=== PATIENT | male | born 1955 | race Caucasian/White ===

== ENCOUNTER → 2018-10-24 | Outpatient (CLI) | payer BC ==
[~2018-10-24] MED LIST: METHACHOLINE KIT (J7674) INH ONE
--- NOTE | 2018-10-24 10:18 | PFTRPT ---
Height: 70.00 Inches Weight: 280.00 Lbs BSA: 2.41 Diagnosis: R05 DATE OF PROCEDURE: 10/24/2018 ORDERED BY: Nahum Nolen INTERPRETATION: Methacholine challenge of excellent technical quality. Under protocol, methacholine was administered. Even after a maximal dose of 25 mg (188.875 CDUs), no provocation dose ever achieved. IMPRESSION: Negative methacholine challenge study. MTDD
== END ==
LOC: M CARPUL 09:08
PROVIDERS: ATTEND Allergy & Immunology
DX: R05 Cough (principal)
CPT/HCPCS: 94070; J7674

== ENCOUNTER → 2019-09-29 | Outpatient (REF) | payer BC ==
[2019-09-29 17:35] LABS: BASO # 0.1 10^3/uL (0.0-0.2); BASO % 0.6 % (0.0-1.0); EOS % 0.4 % (0.0-3.0); HEMATOCRIT 43.2 % (42.0-52.0); HEMOGLOBIN 14.1 g/dl (13.5-17.5); LYMPH # 0.4 10^3/uL (1.5-5.0); LYMPH % 4.8 % (24.0-44.0); MEAN CORPUSCULAR HEMOGLOBIN 30.2 pg (27.0-33.0); MEAN CORPUSCULAR HGB CONC 32.6 g/dl (32.0-36.5); MEAN CORPUSCULAR VOLUME 92.5 fl (80.0-96.0); MONO # 0.2 10^3/uL (0.0-0.8); MONO % 3.1 % (0.0-5.0); NEUTROPHILS # 7.1 10^3/uL (1.5-8.5); NEUTROPHILS % 90.7 % (36.0-66.0); PLATELET COUNT, AUTOMATED 156 10^3/uL (150-450); RED BLOOD COUNT 4.67 10^6/uL (4.30-6.10); WHITE BLOOD COUNT 7.9 10^3/uL (4.0-10.0)
[2019-09-29 17:36] LABS: BLOOD UREA NITROGEN 10 MG/DL (7-18); C REACTIVE PROTEIN QUANTITATIV 2.17 MG/DL (0.00-0.30); CALCIUM LEVEL 9.5 MG/DL (8.8-10.2); CARBON DIOXIDE LEVEL 29 MEQ/L (21-32); CHLORIDE LEVEL 98 MEQ/L (98-107); CREATININE FOR GFR 1.02 MG/DL (0.70-1.30); GLOMERULAR FILTRATION RATE > 60.0 (>49); GLUCOSE, FASTING 123 MG/DL (70-100); POTASSIUM SERUM 4.2 MEQ/L (3.5-5.1); SODIUM LEVEL 133 MEQ/L (136-145)
[2019-09-29 19:17] LABS: ERYTHROCYTE SEDIMENTATION RATE 43 mm/hr (0-20)
== END ==
LOC: M LABDRAW1 16:59
PROVIDERS: ATTEND Orthopaedic Surgery
DX: S82.54XA Nondisplaced fracture of medial malleolus of right tibia, initial encounter for closed fracture (principal); W18.30XA Fall on same level, unspecified, initial encounter; Y92.9 Unspecified place or not applicable

== ENCOUNTER 2019-10-06 09:46 | Inpatient (IN) | payer BC ==
--- NOTE | 2019-10-05 03:16 | HPE ---
DATE OF PLANNED ADMISSION: 10/06/2019 CHIEF COMPLAINT: Right ankle pain. HISTORY OF PRESENT ILLNESS: Chaim Metz is a 64-year-old male who is well known to me for severe right ankle arthritis. Unfortunately, over the past few weeks, he has had worsening pain. X-rays were performed, which have been found to show a worsening fracture through the distal tibia medially. He presents for open reduction, internal fixation of the tibia and ankle fusion. PAST MEDICAL HISTORY: 1. Hypertension. 2. Coronary artery disease. 3. Chronic obstructive pulmonary disease (COPD). 4. Gastroesophageal reflux disease (GERD) and history of Clostridium (C) difficile. 5. Multiple sclerosis (MS), on Aubagio. 6. Back problems. 7. History of a deep venous thrombosis (DVT) 2 years ago. ALLERGIES: SULFA, KEFLEX, PENICILLIN, AMOXICILLIN. PHYSICAL EXAMINATION: GENERAL: Well appearing, alert and oriented, in no acute distress. PULMONARY: Regular, nonlabored breathing. CARDIOVASCULAR (CV): Regular dorsalis pedis (DP) pulse. MUSCULOSKELETAL: There is significant pain along the tibiotalar joint and medial tibia. Mild swelling. Intact dorsiflexion, plantar flexion, inversion, eversion. Normal sensation to light touch in the superficial peroneal, deep peroneal, tibial distribution. Foot is normal perfused. IMAGING: [place]-[facility] [place] [facility] [place] [place] a displaced right tibial plafond fracture, which is vertical and severe, tibiotalar joint arthritis, which is in varus. IMPRESSION: Right ankle fracture in the setting of severe tibiotalar joint arthritis. PLAN: We will proceed with ankle fusion and open reduction, internal fixation (ORIF) of the right tibia. Risks and benefits of the surgery were discussed with the patient in detail and include, but are not limited to, infection, damage to nerves and blood vessels, continued pain and stiffness, need for additional procedures. We will also likely take some proximal tibial bone graft. Please refer to the patient's medical clearance report for any further information.
[~2019-10-06] VITALS: Ht 177.8 cm; Wt 117.5 kg
[~2019-10-06 09:46] MED LIST changes: +AMLO10TA5 PO; +AUBA14TA PO; +AVAP300T23 PO; +CITA20TA6 PO; +CRES20TA2 PO; +CVS1CAP2 PO; +DICY10CA13 PO; +FAMO40TA3 PO; +GABA-843 PO; +HM S0.65; +HYDR-3713 PO; +INDA25TAB PO; +LR 1,000 ML IV ONE; -METHACHOLINE KIT (J7674) INH ONE; +METO1TAB32 PO; +POTA10TA16 PO; +QC F0.52 PO; +SING10TA32 PO; +TERA1CAP3 PO; +VANCOMYCIN HCL 1,000 MG, VIAL MATE ADAPTER 1 EACH in D5W 250 ML IV ONE; +VENTAER INH; +VITA50005 PO; +ZYLO300T6 PO; +[UNRECOGNIZED DRUG - CODE] PO
[2019-10-06] MEDS ORDERED: VANCOMYCIN 1000MG/20ML VIAL As Ordered ONE (10:14)
[2019-10-06] MEDS ORDERED: FLON1SPR (10:51)
[2019-10-06] MEDS ORDERED: ASPI81TA85 PO (10:51)
[2019-10-06] MEDS ORDERED: ALBUTEROL SULFATE 2.5 MG/0.5 ML INH NEB SOLN INH ONE (11:45)
[2019-10-06] MEDS ORDERED: fentaNYL 100 MCG/2 ML INJECTION (J3010) As Ordered ONE ×2 (11:52→13:24)
[2019-10-06] MEDS ORDERED: MIDAZOLAM INJ 2MG/2ML VIAL (J2250 PER 1MG) As Ordered ONE ×2 (11:52→12:49)
[2019-10-06] MEDS: fentaNYL 100 MCG/2 ML INJECTION (J3010) IV PRN ×2 (12:10→12:25)
[2019-10-06] MEDS: MIDAZOLAM INJ 2MG/2ML VIAL (J2250 PER 1MG) IV PRN ×3 (12:10→12:52)
[2019-10-06] MEDS ORDERED: BUPIVACAINE HCL 0.5% 30 ML VIAL As Ordered ONE (13:14)
[2019-10-06] MEDS ORDERED: ROCURONIUM BROMIDE 50 MG/5 ML VIAL As Ordered ONE ×2 (13:24→15:09)
[2019-10-06] MEDS ORDERED: propofoL 200 MG/20 ML VIAL As Ordered ONE (13:24)
[2019-10-06] MEDS ORDERED: LIDOCAINE 2% 100MG/5ML SDV (FOR ANES.) As Ordered ONE (13:24)
[2019-10-06] MEDS ORDERED: PHENYLephrine HCL 500 MCG/5 ML (100MCG/ML) SYRINGE (J2370) As Ordered ONE (13:54)
[2019-10-06] MEDS ORDERED: METOCLOPRAMIDE INJ 10MG/2ML VIAL (J2765 PER 1) As Ordered ONE (13:55)
[2019-10-06] MEDS ORDERED: fentaNYL 250 MCG/5 ML INJECTION (J3010) As Ordered ONE ×2 (14:21→15:58)
[2019-10-06] MEDS ORDERED: EPINEPHrine INJ 1 MG/ML 1ML AMP ONE (14:55)
[2019-10-06] MEDS ORDERED: ROPIvacaine 0.5% 30ML INJECTION (J2795 PER 1MG) ONE (14:55)
[2019-10-06] MEDS ORDERED: LIDOCAINE 1% MDV 20ML VIAL ONE (14:55)
[2019-10-06] MEDS ORDERED: HYDROmorphone HCL 2 MG/ML 1ML VIAL (J1170) As Ordered ONE (15:10)
[2019-10-06] MEDS ORDERED: LABETALOL 100MG/20ML VIAL As Ordered ONE (16:00)
[2019-10-06] MEDS ORDERED: ACETAMINOPHEN 1000MG 100ML IV BTL (OFIRMEV) (J0131 PER 10MG) As Ordered ONE (16:21)
[2019-10-06] MEDS ORDERED: ONDANSETRON 4MG/2ML VIAL As Ordered ONE (17:13)
[2019-10-06] MEDS ORDERED: KETOROLAC 60 MG/2 ML VIAL As Ordered ONE (17:13)
[2019-10-06] MEDS ORDERED: dexameTHASONE 4 MG/ML 1ML VIAL (J1100 PER 1MG) As Ordered ONE (17:13)
[2019-10-06] MEDS ORDERED: ONDANSETRON 4MG/2ML VIAL IV PRN (18:30)
[2019-10-06] MEDS ORDERED: FLEET ENEMA PR PRN (18:30)
[2019-10-06] MEDS ORDERED: METOCLOPRAMIDE INJ 10MG/2ML VIAL (J2765 PER 1) IV PRN (18:30)
[2019-10-06] MEDS ORDERED: fentaNYL 100 MCG/2 ML INJECTION (J3010) IV PRN (18:30)
[2019-10-06] MEDS ORDERED: LR 1,000 ML IV SCH (18:30)
[2019-10-06] MEDS ORDERED: PERCOCET 5MG/325MG TAB PO PRN (18:30)
[2019-10-06] MEDS ORDERED: MORPHINE 2 MG/ML 1ML VIAL (J2270) IV PRN (18:45)
[2019-10-06] MEDS ORDERED: oxyCODONE 5MG TAB PO PRN (18:45)
[2019-10-06 20:00] VITALS: BP 138/89
[2019-10-06 20:15] LABS: HEMATOCRIT 39.6 % (42.0-52.0); HEMOGLOBIN 13.1 g/dl (13.5-17.5); MEAN CORPUSCULAR HEMOGLOBIN 30.2 pg (27.0-33.0); MEAN CORPUSCULAR HGB CONC 33.1 g/dl (32.0-36.5); MEAN CORPUSCULAR VOLUME 91.2 fl (80.0-96.0); PLATELET COUNT, AUTOMATED 152 10^3/uL (150-450); RED BLOOD COUNT 4.34 10^6/uL (4.30-6.10); WHITE BLOOD COUNT 8.4 10^3/uL (4.0-10.0)
[2019-10-06 20:25] LABS: INR 1.13; PROTHROMBIN TIME 14.2 SECONDS (11.8-14.0)
[2019-10-06] MEDS ORDERED: DICY20TA11 PO (20:31)
[2019-10-06 20:40] LABS: ALBUMIN 3.3 GM/DL (3.2-5.2); ALT/SGPT 22 U/L (12-78); BILIRUBIN,TOTAL 0.8 MG/DL (0.2-1.0); BLOOD UREA NITROGEN 17 MG/DL (7-18); CALCIUM LEVEL 8.4 MG/DL (8.8-10.2); CARBON DIOXIDE LEVEL 27 MEQ/L (21-32); CHLORIDE LEVEL 105 MEQ/L (98-107); CREATININE FOR GFR 0.99 MG/DL (0.70-1.30); GLOMERULAR FILTRATION RATE > 60.0 (>49); GLUCOSE, FASTING 131 MG/DL (70-100); POTASSIUM SERUM 4.2 MEQ/L (3.5-5.1); SODIUM LEVEL 137 MEQ/L (136-145); TOTAL PROTEIN 6.3 GM/DL (6.4-8.2)
[2019-10-06 20:42] LABS: CK-MB VALUE MASS 2.5 NG/ML (<3.6); CPK CREATINE PHOSPHOKINASE 209 U/L (39-308); TROPONIN I < 0.02 NG/ML (< 0.10)
[2019-10-06] MEDS: LR 1,000 ML IV SCH (20:44)
[2019-10-06] MEDS: VANCOMYCIN HCL 1,000 MG, VIAL MATE ADAPTER 1 EACH in D5W 250 ML IV SCH (20:44)
[2019-10-06] MEDS: ACETAMINOPHEN 500 MG TAB PO SCH (20:45)
[2019-10-06] MEDS: oxyCODONE 5MG TAB PO PRN (23:01)
[2019-10-07] VITALS: BP 158/92
[2019-10-07 01:18] LABS: CK-MB VALUE MASS 2.8 NG/ML (<3.6); CPK CREATINE PHOSPHOKINASE 270 U/L (39-308); MB/CK RELATIVE INDEX 1.04 (< OR =4); TROPONIN I < 0.02 NG/ML (< 0.10)
--- NOTE | 2019-10-07 01:45 | HPEPDOC ---
[facility] Medical History & Physical Date of Admission Oct 06, 2019 Date of Service: Oct 06, 2019 History and Physical CHIEF COMPLAINT: AV block during surgery HISTORY OF PRESENT ILLNESS: This is a 64-year-old male with a pertinent past medical history of ischemic heart disease, hypertension and MS who presented to [facility] for ORIF and proximal tibia bone graft with Dr. Cabrera today. During this procedure it was reported that Ms. Metz experienced 15 minutes of second-degree AV block type I. Telemetry strip were reviewed, which showed this episode lasting relatively 10 seconds. The meaning of the procedure was uneventful. He tolerated it relatively well with no hypotensive episodes. Hospitalist team was called for admission for evaluation. He endorses a history of hypertension and ischemic heart disease is on losartan and metoprolol succinate daily. Endorses to see a proof passer at [facility] cardiology his last visit was a few months ago and states he [place] [facility] [place] for a stress test and EKG. He notes that having a left catheterization in 2017 which showed minimal disease and did not have any stents placed. He denies any history of abnormal rhythms, congestive heart failure or any other known cardiac disease. He does endorse a history of DVTs in the past currently not on anticoagulation. He is on aspirin 81 mg for primary prevention. His last appointment with his PCP was on 10/03/2019 and documented EKG there states sinus rhythm with nonspecific intraventricular conduction delay with no acute ST-T wave changes unchanged from 2016. He has no complaints today and states hes feeling relatively well despite having surgery on his right leg. PAST MEDICAL HISTORY: 1. Hyperlipidemia 2. Ischemic heart disease ([facility] in 2017 negative no stents placed) 3. Multiple sclerosis 4. Asthma controlled 5. History of C. difficile S/D fecal transplant 6. Gout 7. Hypertension 8. Seasonal allergies on allergy shots 9. History of DVT on the Right 10. History of nephrolithiasis requiring lithotripsy HOME MEDICATIONS: Please see below. ALLERGIES: Please see below PAST SURGICAL HISTORY: 1. ORIF of the right ankle 2. Nephrolithiasis requiring lithotripsy 3. Cubital tunnel syndrome with decompression on the left 4. Insertion of the tendon sheath of the left ring and index finger 5. Tonsillectomy 6. Cholecystectomy 7. Decompression of the median nerve at the carpal tunnel bilaterally SOCIAL HISTORY: Lives with: ,Employment: Retired, [employer], Tobacco use: Former smoker quit in had a 30 pack history. ETOH: Former heavy drinker, Illicit drug use: Denies, CODE STATUS: Focal FAMILY HISTORY: Reviewed. Father [place], hypertension, CAD, obesity: Mother , COPD: Brother , stroke, hypertension: Second brother, hypertension, obesity, COPD, OA: Sister -hypertension REVIEW OF SYSTEMS: 10 systems reviewed and negative other than HPI PHYSICAL EXAMINATION: VITAL SIGNS: See Below GENERAL: Pleasant 64-year-old male laying in awake alert oriented speaking in complete sentences no acute distress HEENT: Atraumatic, normocephalic, it was equal round reactive, moist mucous membranes with a facemask over, large neck girth, no JVD noted trachea is midline CARDIOVASCULAR: Heart sounds faint S1-S2 sounds present no audible murmurs rubs or gallops appreciated RESPIRATORY: Lateral lung sounds clear to auscultate bilaterally posterior legs and cannot be documented for the patient could not sit up during exam ABDOMINAL: Bowel sounds in all 4 quadrants soft obese abdomen benign exam EXTREMITIES: Left lower extremity no pitting edema no calf tenderness. Right lower extremity wrapped in Delvin bandage with DONTA drain in place with bloody serosanguineous drainage no clotting noted. NEUROLOGICAL: intact no gross focal deficits appreciated. Appropriately answering questions alert and oriented 3 PSYCHOLOGICAL: Appropriate LABORATORY DATA: See below. MICROBIOLOGY: Please see below. IMAGING: None ASSESSMENT & PLAN: This is a 64-year-old male with a pertinent past medical history of ischemic heart disease, hypertension and MS who presented to [facility] for ORIF and proximal tibia bone graft with Dr. Cabrera today being admitted for second heart block type I determined on EKG during surgery. PROBLEMS: 1. Second heart block type I determined on EKG during surgery -possible secondary to metoprolol succinate (AV blockade) which he took this morning on the surgery -Currently on telemetry sinus rhythm with slightly prolonged PA interval the AV block blood pressure appears normotensive. Patient is asymptomatic - admit to PCU observation 24 hours with telemetry monitoring. -obtain EKG, cardiac marker trends q6h, monitor electrolytes and obtain echocardiogram. -If asymptomatic while admitted can consider discharge to follow-up with his proof passer earlier than scheduled for further workup (as an upcoming stress test and EKG scheduled in November 2019) 2. Hyperlipidemia -c/w Crestor 3. Hypertension -c/w amlodipine, Lozol, irbesartan and metoprolol succinate with hold parameters 4. Gout -c/w allopurinol 5. Acid reflux -c/w famotidine 6. Aasthma -Compensated. Monitor 7. Seasonal allergies -c/w Singulair 8. Depression -c/w citalopram 9. BPH -c/w Terazosin 10. History of DVTs -DVT prophylaxis per ortho due to recent surgery. -Start Xarelto tomorrow at 1800 DVT PROPHYLAXIS: Start Xarelto tomorrow at 1800 DISPOSITION: Admit Obs to PCU with telemetry monitoring Vital Signs Vital Signs Date Time Temp Pulse Resp B/P (MAP) Pulse Ox O2 Delivery O2 Flow Rate FiO2 10/07/19 00:00 97.1 74 20 158/92 (114) 96 Room Air 10/06/19 20:00 2 Laboratory Data Labs 24H Laboratory Tests 2 10/06/19 19:57: Nucleated Red Blood Cells % (auto) 0.0, Prothrombin Time 14.2H, Prothromb Time International Ratio 1.13, Anion Gap 5L, Glomerular Filtration Rate > 60.0, Calcium Level 8.4L, Total Bilirubin 0.8, Aspartate Amino Transf (AST/SGOT) 29, Alanine Aminotransferase (ALT/SGPT) 22, Alkaline Phosphatase 90, Total Creatine Kinase 209, Creatine Kinase MB 2.5, Creatine Kinase MB Relative Index 1.20, Troponin I < 0.02, Total Protein 6.3L, Albumin 3.3, Albumin/Globulin Ratio 1.10 10/06/19 20:34: Bedside Glucose (Misc Panel) 128H 10/07/19 00:51: Total Creatine Kinase 270, Creatine Kinase MB 2.8, Creatine Kinase MB Relative Index 1.04, Troponin I < 0.02 CBC/BMP Laboratory Tests 10/06/19 19:57 Microbiology Microbiology 10/06/19 Gram Stain, Received Pending 10/06/19 Wound Culture, Received Pending 10/06/19 Anaerobic Culture, Received Pending Home Medications Scheduled Allopurinol (Zyloprim) 300 Mg Tablet, 300 MG PO DAILY Amlodipine Besylate (Amlodipine Besylate) 10 Mg Tablet, 10 MG PO DAILY Aspirin (Aspir 81) 81 Mg Tablet.dr, 81 MG PO DAILY Citalopram Hydrobromide (Citalopram HBr) 20 Mg Tablet, 20 MG PO DAILY Ergocalciferol (Vitamin D2) (Vitamin D2) 50,000 Units Cap, 1 CAP PO QWEEK wednesday Famotidine (Famotidine) 40 Mg Tablet, 40 MG PO BID Gabapentin (Gabapentin) 300 Mg Capsule, 300 MG PO BID Indapamide (Indapamide) 2.5 Mg Tablet, 2.5 MG PO BID Irbesartan (Avapro) 300 Mg Tablet, 300 MG PO DAILY Lactobacillus Combo No.10 (Probiotic) 1 Each Capsule, 1 CAP PO BID Metoprolol Succinate (Metoprolol Succinate) 25 Mg Tab.er.24h, 25 MG PO DAILY Montelukast Sodium (Singulair) 10 Mg Tablet, 10 MG PO DAILY Potassium Chloride (Potassium Chloride) 10 Meq Tab.er.prt, 10 MEQ PO BID Psyllium Husk (Fiber) 0.52 Gm Capsule, 1 CAP PO BID Rosuvastatin Calcium (Crestor) 20 Mg Tablet, 20 MG PO DAILY Sodium Chloride (Saline Nasal [place]) 44 Ml [place], 1 SPRAY NA PRN Terazosin HCl (Terazosin HCl) 1 Mg Capsule, 1 MG PO QHS Teriflunomide (Aubagio) 14 Mg Tablet, 14 MG PO DAILY Yeast,Dried (S. Cerevisiae) (Fung's Yeast) 680 Mg Tablet, 680 MG PO BID Scheduled PRN Albuterol Sulfate (Ventolin Hfa) 18 Gm Hfa.aer.ad, 2 PUFFS INH QID PRN for DYSPNEA Dicyclomine HCl (Dicyclomine HCl) 20 Mg Tablet, 20 MG PO TID PRN for ABDOMINAL PAIN Fluticasone Propionate (Flonase Allergy Relief) 9.9 Ml [place].susp, 50 MCG NA DAILYPRN PRN for NASAL CONGESTION Hydrocodone/Acetaminophen (Hydrocodone-Acetamin 5-325 mg) 1 Each Tablet, 1 TAB PO TID PRN for PAIN Allergies Coded Allergies: Penicillins (Verified Allergy, Severe, resp issues, rashes, 10/04/19) all cillins Sulfa (Sulfonamide Antibiotics) (Verified Allergy, Severe, resp issues, rash, 10/04/19) cefaclor (Verified Allergy, Severe, resp issues, rash, 10/04/19) GME ATTESTATION GME ATTESTATION My faculty preceptor for this patient encounter was physically present during the encounter and was fully available. All aspects of the patient interview, examination, medical decision making process, and medical care plan development were reviewed and approved by the faculty preceptor. The faculty preceptor is aware and concurs with the plan as stated in the body of this note and will attest to such by his/her cosignature. ATTENDING NOTE I, Louise Whitlock, have independently examined this patient and performed my own physical exam, as well as reviewed the documentation and edited where necessary. I have discussed in detail with the resident / student the findings and plan of treatment as documented by the resident / student and edited their note. I agree with their findings and treatment plan and have edited their documentation. I will continue to follow the patient during this hospital stay. DULCE DOSS DO Oct 07, 2019 01:45 LOUISE WHITLOCK MD Oct 07, 2019 02:28
[2019-10-07] MEDS: TERAZOSIN 1 MG CAP PO SCH ×2 (02:39→20:29)
[2019-10-07] MEDS: FAMOTIDINE 20 MG TAB PO SCH ×3 (02:39→20:29)
[2019-10-07] MEDS: INDAPAMIDE 1.25MG TABLET PO SCH ×3 (02:44→21:00)
[2019-10-07] MEDS: NORCO, ANEXSIA 5/325MG TABLET (HYDROcodone/ACETAMINOPHEN) PO PRN ×2 (03:26→12:40)
[2019-10-07 04:00] VITALS: BP 146/82
[2019-10-07] MEDS: ACETAMINOPHEN 500 MG TAB PO SCH ×3 (06:00→22:00)
[2019-10-07 06:40] LABS: BASO % 0.2 % (0.0-1.0); HEMATOCRIT 37.7 % (42.0-52.0); HEMOGLOBIN 12.6 g/dl (13.5-17.5); LYMPH # 0.5 10^3/uL (1.5-5.0); LYMPH % 5.8 % (24.0-44.0); MEAN CORPUSCULAR HEMOGLOBIN 29.9 pg (27.0-33.0); MEAN CORPUSCULAR HGB CONC 33.4 g/dl (32.0-36.5); MEAN CORPUSCULAR VOLUME 89.5 fl (80.0-96.0); MONO # 0.5 10^3/uL (0.0-0.8); NEUTROPHILS # 7.1 10^3/uL (1.5-8.5); NEUTROPHILS % 87.6 % (36.0-66.0); PLATELET COUNT, AUTOMATED 162 10^3/uL (150-450); RED BLOOD COUNT 4.21 10^6/uL (4.30-6.10); WHITE BLOOD COUNT 8.1 10^3/uL (4.0-10.0)
[2019-10-07] MEDS: LR 1,000 ML IV SCH (06:41)
[2019-10-07 07:01] LABS: BLOOD UREA NITROGEN 14 MG/DL (7-18); CALCIUM LEVEL 8.6 MG/DL (8.8-10.2); CARBON DIOXIDE LEVEL 25 MEQ/L (21-32); CHLORIDE LEVEL 103 MEQ/L (98-107); CREATININE FOR GFR 0.89 MG/DL (0.70-1.30); GLOMERULAR FILTRATION RATE > 60.0 (>49); GLUCOSE, FASTING 121 MG/DL (70-100); MAGNESIUM LEVEL 2.1 MG/DL (1.8-2.4); POTASSIUM SERUM 4.2 MEQ/L (3.5-5.1); SODIUM LEVEL 136 MEQ/L (136-145)
[2019-10-07 07:03] LABS: CK-MB VALUE MASS 2.4 NG/ML (<3.6); CPK CREATINE PHOSPHOKINASE 302 U/L (39-308); MB/CK RELATIVE INDEX 0.79 (< OR =4); TROPONIN I < 0.02 NG/ML (< 0.10)
[2019-10-07 08:00] VITALS: BP 182/92
[2019-10-07] MEDS: VITAMIN D 1,000 INTERNATIONAL UNITS TABLET PO SCH (08:45)
[2019-10-07] MEDS: amLODIPine 10 MG TAB PO SCH (08:45)
[2019-10-07] MEDS: CitaloPRAM (CeleXA) 20 MG TAB PO SCH (08:45)
[2019-10-07] MEDS: MONTELUKAST 10 MG TAB PO SCH (08:45)
[2019-10-07] MEDS: METOPROLOL SUCC *XL* 25MG TAB (TopROL *XL*) PO SCH (08:45)
[2019-10-07] MEDS: IRBESARTAN 150 MG TAB PO SCH (08:46)
[2019-10-07] MEDS: allopurinoL 300 MG TAB PO SCH (08:46)
[2019-10-07] MEDS: ROSUVASTATIN 10 MG TAB (CRESTOR) PO SCH (08:47)
[2019-10-07] MEDS: VANCOMYCIN HCL 1,000 MG, VIAL MATE ADAPTER 1 EACH in D5W 250 ML IV SCH (08:47)
--- NOTE | 2019-10-07 09:14 | IPN ---
DATE: 10/07/2019 CHIEF COMPLAINT: Postop day #1 right ankle open reduction internal fixation (ORIF) with bone grafting. HISTORY OF PRESENT ILLNESS: This 64-year-old man is in the progressive care unit (PCU) for a second degree AV block. He is on telemetry. He is doing well otherwise. Minor amount of pain in the ankle. He is wondering if he can mobilize with a commode or to the washroom as long as he stays non weight bearing. PHYSICAL EXAMINATION: Well-appearing man in no acute distress. He is alert and oriented x3. Mood and affect pleasant and positive. He is lying supine in bed. His leg is elevated. He has spontaneous lower extremity. He can wiggle his toes. His toes are warm and well perfused. Capillary refill under 3 seconds. Josue-Griffin (DONTA) drainage in situ, 10 mL of red fluid. ASSESSMENT/PLAN: This man can mobilize up to the washroom as long as he stays non weightbearing. I will let the nurses know. We will likely wait until tomorrow until the DONTA drain decreases to remove the drain. He will be on telemetry for 24 hours postop. I appreciate their expert advice and managemnet. I will communicate the results to Dr. Cabrera as well.
[2019-10-07] MEDS ORDERED: DICYCLOMINE 10 MG CAP PO PRN (09:45)
[2019-10-07] MEDS ORDERED: ALBUTEROL 90 MCG/ACT 8GM HFA INHALER INH PRN (09:45)
[2019-10-07] MEDS ORDERED: FLUTICASONE PROP 0.05% NASAL SPRAY 16 GM (FLONASE) PRN (09:45)
[2019-10-07] MEDS ORDERED: SODIUM CHLORIDE NASAL 0.65% SPRAY BTL (OCEAN) PRN (09:45)
--- NOTE | 2019-10-07 09:51 | REP ---
MULTIPLE C-ARM VIEWS RIGHT ANKLE: Multiple C-arm views right ankle performed intraoperatively during placement of metallic plate and multiple metallic screws in the distal tibia and in the talus. 193 seconds of fluoroscopy time is utilized. Electronically Signed by Marcelo Mcgill MD 10/07/2019 10:01 A
--- NOTE | 2019-10-07 11:34 | IPNPDOC ---
Text Note Date of Service The patient was seen on 10/07/19. NOTE Subjective: -No complaints this morning, pain well controlled, asking about home meds being restarted PHYSICAL EXAMINATION: VITAL SIGNS: See Below, HDS, afebrile General: NAD, pleasant, obese HEENT: NCAT, EOMI, PERRLA, no injection, anicteric, MMM CARDIOVASCULAR: NSR without mrg noted RESPIRATORY: anterior exam with good air movement and clear to auscultation, no wheezing or rales, breathing comfortably on room air ABDOMINAL: Normoactive bowel, obese, soft, NTND EXTREMITIES: Right lower extremity wrapped in bandage with DONTA drain in place with bloody serosanguineous fluid in bag, LLE wnl with no edema, WWP NEUROLOGICAL: CN 2-12 appear grossly intact, moving all extremities with RLE limited by pain PSYCHOLOGICAL: Appropriate, AOx3 LABORATORY DATA: See below. WBC 8.1 hgb 12.6 platelets 162 na 136 K 4.2 Cr 0.89 mag 2.1 wound culture - no organisms on gram stain, pending culture IMAGING: None ASSESSMENT & PLAN: 64-year-old M with a pertinent past medical history of ischemic heart disease, hypertension and MS who presented to [facility] for ORIF and proximal tibia bone graft with Dr. Cabrera today and was admitted post op after noted brief second heart block type I determined on EKG during surgery, who is currently doing well post op under telemetry observation without further AV block. PROBLEMS: 1. 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 Hyperlipidemia -c/w Crestor 3. Hypertension -c/w amlodipine, Lozol, irbesartan and metoprolol succinate with hold parameters 4. Gout -c/w allopurinol 5. Acid reflux -c/w famotidine 6. Asthma -Compensated. Monitor, continue home mdi 7. Seasonal allergies -c/w Singulair 8. Depression -c/w citalopram 9. BPH -c/w Terazosin 10. MS -continue home teriflunomide 11. History of DVTs -DVT prophylaxis per ortho due to recent surgery. -Start Xarelto tomorrow at 1800 DVT PROPHYLAXIS: Start Xarelto today per surgical team DISPOSITION: Obs to PCU with telemetry monitoring VS,Fishbone, I+O VS, Fishbone, I+O Laboratory Tests 10/06/19 19:57 10/07/19 06:27 Vital Signs Date Time Temp Pulse Resp B/P (MAP) Pulse Ox O2 Delivery O2 Flow Rate FiO2 10/07/19 08:45 75 182/92 10/07/19 08:00 98.2 18 93 Room Air 10/06/19 20:00 2 I&O- Last 24 Hours up to 6 AM 10/07/19 06:00 Intake Total 3735 ml Output Total 1320 ml Balance 2415 ml BERTA SMALLS MD Oct 07, 2019 09:57
[2019-10-07 12:05] VITALS: BP 146/78
[2019-10-07] MEDS: TERIFLUNOMIDE 14 MG PO SCH (12:40)
--- NOTE | 2019-10-07 13:12 | ECGEPIP ---
[facility] Test Date: 2019-10-06 Pat Name: MEKA GORDON Department: Room: [place] [address] Gender: Male Claims Vice President: : 1955 Requested By: GENA Guidry Order Number: [id number] Reading MD: Tim Vila Measurements Intervals [place] Rate: 89 P: ND: 0 QRS: -55 QRSD: 137 T: 68 QT: 389 QTc: 474 Interpretive Statements Normal sinus rhythm MARKED LEFT AXIS DEVIATION INTRAVENTRICULAR CONDUCTION DELAY Comparison tracing not on file Electronically Signed on 10-07-2019 13:12:08 EDT by Tim Vila
--- NOTE | 2019-10-07 13:24 | ECGEPIP ---
[facility] Test Date: 2019-10-07 Pat Name: MEKA GORDON Department: Room: [place] [address] Gender: Male Guideman: ROSALIE : 1955 Requested By: VIANEY BABIN Order Number: [id number] Reading MD: Tim Vila Measurements Intervals [place] Rate: 71 P: 30 NM: 215 QRS: -39 QRSD: 105 T: -34 QT: 397 QTc: 432 Interpretive Statements SINUS RHYTHM WITH FIRST DEGREE AV BLOCK WITH OCCASIONAL VENTRICULAR PREMATURE COMPLEXES MARKED LEFT AXIS DEVIATION NONSPECIFIC T-WAVE ABNORMALITY new from tracing done 10-06-19 Electronically Signed on 10-07-2019 13:23:52 EDT by Tim Vila
[2019-10-07 16:00] VITALS: BP 144/77
[2019-10-07] MEDS: LACTOBACILLUS ACIDOPHILUS CAP (BACID) PO SCH (17:03)
[2019-10-07] MEDS ORDERED: RIVAROXABAN 10 MG TAB (XARELTO) PO SCH (18:00)
[2019-10-07 20:00] VITALS: BP 169/96
[2019-10-07] MEDS: METAMUCIL (PSYLLIUM) PACKET PO SCH (20:29)
[2019-10-07] MEDS: GABAPENTIN 300 MG CAP PO SCH (20:29)
[2019-10-07] MEDS: POTASSIUM CHLORIDE 10 MEQ SR TABLET PO SCH (20:29)
[2019-10-07] MEDS: oxyCODONE 5MG TAB PO PRN (20:29)
[2019-10-08] VITALS: BP 132/88
[2019-10-08] MEDS ORDERED: PROMETHAZINE INJ 25 MG/ML VIAL (J2550) IV PRN (02:45)
[2019-10-08] MEDS: NORCO, ANEXSIA 5/325MG TABLET (HYDROcodone/ACETAMINOPHEN) PO PRN (03:19)
[2019-10-08 04:00] VITALS: BP 147/92
[2019-10-08 05:48] LABS: BASO # 0.1 10^3/uL (0.0-0.2); BASO % 0.6 % (0.0-1.0); EOS # 0.1 10^3/uL (0.0-0.5); EOS % 0.6 % (0.0-3.0); HEMATOCRIT 38.9 % (42.0-52.0); HEMOGLOBIN 12.8 g/dl (13.5-17.5); LYMPH # 0.9 10^3/uL (1.5-5.0); MEAN CORPUSCULAR HEMOGLOBIN 29.9 pg (27.0-33.0); MEAN CORPUSCULAR HGB CONC 32.9 g/dl (32.0-36.5); MEAN CORPUSCULAR VOLUME 90.9 fl (80.0-96.0); MONO % 12.8 % (0.0-5.0); NEUTROPHILS # 5.9 10^3/uL (1.5-8.5); NEUTROPHILS % 74.6 % (36.0-66.0); PLATELET COUNT, AUTOMATED 163 10^3/uL (150-450); RED BLOOD COUNT 4.28 10^6/uL (4.30-6.10); WHITE BLOOD COUNT 7.9 10^3/uL (4.0-10.0)
[2019-10-08 06:00] LABS: BLOOD UREA NITROGEN 12 MG/DL (7-18); CALCIUM LEVEL 9.2 MG/DL (8.8-10.2); CARBON DIOXIDE LEVEL 29 MEQ/L (21-32); CHLORIDE LEVEL 101 MEQ/L (98-107); CREATININE FOR GFR 0.85 MG/DL (0.70-1.30); GLOMERULAR FILTRATION RATE > 60.0 (>49); GLUCOSE, FASTING 110 MG/DL (70-100); MAGNESIUM LEVEL 1.9 MG/DL (1.8-2.4); POTASSIUM SERUM 3.5 MEQ/L (3.5-5.1); SODIUM LEVEL 135 MEQ/L (136-145)
[2019-10-08] MEDS: ACETAMINOPHEN 500 MG TAB PO SCH (06:47)
--- NOTE | 2019-10-08 07:30 | ECHO ---
DATE OF STUDY: 10/07/2019 DATE OF : 1955 AGE: 64 REFERRING PROVIDER: Dr. Sonia Whitlock PATIENT LOCATION: Room 3230 REASON FOR THE STUDY: Abnormal EKG. 2-D MEASUREMENTS: IVS: 1.1 cm LV: 3.9 cm LVPW: 1.1 cm LA: 3.5 cm Aorta: 3.6 cm DOPPLER MEASUREMENTS: Peak velocity across the aortic valve: 1.2 m/s Peak velocity across the LVOT: 0.74 m/s Mitral E: 0.63 Mitral A: 0.85 Ratio: 0.7 2-D COMMENTS: 1. Technically limited study due to poor acoustic window. 2. Normal left ventricular size and wall thickness. Low normal global left ventricular systolic function with an estimated LVEF of 50-55% noted in limited views. 3. Normal left atrium. The right atrium and the right ventricle appeared to be normal in limited views. 4. The atrial septum appeared to be normal without evidence of defect or shunt. 5. Normal aortic root. 6. A small pericardial effusion was noted, no evidence of cardiac tamponade. 7. Mildly calcified aortic valve with normal leaflet excursion. The mitral valve and the tricuspid valve appeared to be normal in limited views. The pulmonic valve was not visualized. The proximal pulmonary artery branches also were not visualized. 8. The inferior vena cava was not visualized. DOPPLER: No significant valvular abnormalities detected. Abnormal relaxation pattern was noted across the mitral valve leaflets as well as the mitral valve annulus consistent with features of grade 1 left ventricular diastolic dysfunction. IMPRESSION: 1. Technically limited study due to poor acoustic window. 2. Normal global left ventricular systolic function. There are some features of left ventricular diastolic dysfunction, grade 1. 3. Aortic valve sclerosis without stenosis or aortic regurgitation. 4. A small pericardial effusion was noted, no evidence of cardiac tamponade.
[2019-10-08 07:36] VITALS: BP 144/101
[2019-10-08] MEDS: METAMUCIL (PSYLLIUM) PACKET PO SCH (08:14)
[2019-10-08 08:15] VITALS: BP 144/101
[2019-10-08] MEDS: IRBESARTAN 150 MG TAB PO SCH (08:15)
[2019-10-08] MEDS: INDAPAMIDE 1.25MG TABLET PO SCH (08:15)
[2019-10-08] MEDS: METOPROLOL SUCC *XL* 25MG TAB (TopROL *XL*) PO SCH (08:16)
[2019-10-08] MEDS: ROSUVASTATIN 10 MG TAB (CRESTOR) PO SCH (08:16)
[2019-10-08] MEDS: FAMOTIDINE 20 MG TAB PO SCH (08:16)
[2019-10-08] MEDS: LACTOBACILLUS ACIDOPHILUS CAP (BACID) PO SCH (08:16)
[2019-10-08] MEDS: VITAMIN D 1,000 INTERNATIONAL UNITS TABLET PO SCH (08:16)
[2019-10-08] MEDS: GABAPENTIN 300 MG CAP PO SCH (08:17)
[2019-10-08] MEDS: MONTELUKAST 10 MG TAB PO SCH (08:17)
[2019-10-08] MEDS: allopurinoL 300 MG TAB PO SCH (08:17)
[2019-10-08] MEDS: amLODIPine 10 MG TAB PO SCH (08:17)
[2019-10-08] MEDS: CitaloPRAM (CeleXA) 20 MG TAB PO SCH (08:17)
[2019-10-08] MEDS: POTASSIUM CHLORIDE 10 MEQ SR TABLET PO SCH (08:17)
[2019-10-08] MEDS: TERIFLUNOMIDE 14 MG PO SCH (08:18)
[2019-10-08] MEDS ORDERED: OXYC-517 PO (08:36)
[2019-10-08] MEDS ORDERED: XARE10TA PO (08:36)
--- NOTE | 2019-10-08 09:21 | IPN ---
DATE: 10/08/2019 CHIEF COMPLAINT: Postop day #2 right ankle open reduction internal fixation (ORIF) in bone grafting HISTORY OF PRESENT ILLNESS: 64-year-old man seen today on the dean postop day #2. He is kept in hospital for telemetry monitoring. He is doing well today. No complaints of pain in the ankle. He is wondering when he can go home. PHYSICAL EXAM: He is a well-appearing 64-year-old man. He is able wiggle his toes. Normal sensation to the toes. Toes are warm well perfused. Drains in situ only a small amount of sanguinous drainage. ASSESSMENT/PLAN: 64-year-old man. I removed the drain today at the request Dr. Cabrera. Drainage appears to have slowed down. The drain tip was intact and this was discarded. He can be discharged home and followup in the office with Dr. Cabrera according to the orthopedic service, however, he needs to be stable for the hospitalist team. He understands the plan. [place]
--- NOTE | 2019-10-08 09:31 | RO ---
DATE OF PROCEDURE: 10/06/2019 PREPROCEDURE DIAGNOSES: 1. Right ankle fracture. 2. Right ankle severe osteoarthritis. POSTPROCEDURE DIAGNOSES: 1. Right ankle fracture. 2. Right ankle severe osteoarthritis. PROCEDURE: 1. Right ankle arthrodesis. 2. Open reduction internal fixation of right tibial plafond. 3. Right proximal tibial bone graft. SURGEON: Dr. Enriqueta Cabrera BOILER TUBE BLOWER: Leoncio Luna PA-C. ANESTHESIA: General endotracheal. ESTIMATED BLOOD LOSS: 100 mL. SPECIMENS: Cultures times six (three anerobic, three aerobic). COMPLICATIONS: None. DRAINS: Josue-Griffin (DONTA) times one. HARDWARE: Arthrex anterior plating system with associated screws along with two 4.0 mm cannulated 4-0 screws. TOURNIQUET TIME: The tourniquet was up for 152 minutes at 275 mmHg. INDICATION: Chaim Metz is a 64-year-old gentleman who has had longstanding pain and deformity due to severe right ankle arthritis and subsequent fracture. Risks and benefits of the surgery were discussed with the patient in detail and include but are not limited to infection, damage to nerves and blood vessels, continued pain and stiffness, malunion, nonunion, blood clot, need for further surgical procedures. DESCRIPTION OF PROCEDURE: Patient was met in the preoperative holding area where his right lower extremity was marked as the correct operative site. A block was attempted by the anesthesia team but was unsuccessful. He was taken to the operating room and placed in the supine position on the operating room table. Bony prominences were well padded. He received antibiotics within 60 minutes prior to incision. His right lower extremity was prepped and draped in the normal sterile fashion. An official time-out was held where the correct patient, operative side and operative procedure were verified. An incision was made using a prior scar over the aspect of the ankle. Careful dissection was performed. The saphenous vein was retracted. The fracture was identified and cleaned of hematoma and debris. Next, I made an incision over the anterior aspect of the ankle. This was a good 6 cm from the medial incision. Retinaculum was incised. Superficial peroneal nerve was carefully retracted. The extensor hallucis longus (EHL) tendon was identified and neurovascular bundle was retracted laterally. The capsule was incised. Any crossing vessels were coagulated. The tibiotalar joint was identified. There was significant end-stage osteoarthritis. There was a vertical type fracture through the tibial plafond and medial malleolus. The joint was thoroughly debrided by using a series of osteotomes and curets so that there was no cartilage left. I did drilled it to a drill subchondrally both in the tibia and talus. I used a small curet to connect the holes and fish scale the joint so that it was properly prepared. Prior to joint preparation, I had reduced the medial malleolar/tibial plafond fracture with a large point of reduction clamp and pinned it in place with three K-wires. After the joint was thoroughly debrided, attention was turned to the lateral knee. An incision was made over Gerdy's tubercle. This was identified using C-arm. Anterior compartment was elevated and a small 1 cm window was made in the region of Gerdy's tubercle. Proximal tibial bone graft was obtained. Copious irrigation was performed and anterior compartment was then closed with 0 Vicryl. At the end of the case, the rest of the incisions was closed using #3-0 Vicryl with #3-0 nylon. At this point, the bone graft was placed into the tibiotalar joint. I then reduced the varus deformity and pinned it in place with two pins. I then placed a 6.7 mm lag screw from the anterolateral aspect of the joint. The bundle was very carefully retracted during lag screw placement by GOKUL Mcdaniels. After lag screw placement, x-rays were performed in the AP and lateral and mortise views and there was found to be satisfactory compression of the joint and good alignment of both the tibiotalar joint and medial malleolar fracture. Anterior arthrodesis plate was selected. It was secured in place distally with two locking talar screws. Following this I placed an eccentric screw. The anterior cortex of the tibia was beginning to break and I increased the size of the screw to a #5-0 screw, which gave nice compression. Following this I further secured the tibia with locking screws. Finally, at this point, I secured the medial malleolar/tibial plafond fracture with two 4.0 mm cannulated screws. This was done under fluoroscopy and there was good compression and hardware placement. Final x-rays were performed AP and lateral mortise views and were found to be satisfactory. Copious irrigation was performed of all incisions. A 10-Romansh drain was placed. The capsule was closed as was the majority of the retinaculum where able. All soft tissue wounds were closed with #-0 Vicryl and the skin was closed with #3-0 nylon. A sterile dressing was applied followed by a well-padded splint. The patient was extubated and transferred to the recovery room in stable condition. PLAN: Patient will be non-weightbearing in the right lower extremity for 2 months. He will be on Xarelto for deep venous thrombosis (DVT) prophylaxis. He will also have medicine co-management while in the hospital. GOKUL Mcdaniels was present for the entire case and was essential for soft tissue retraction, hardware placement, and overall decrease in tourniquet time.
--- NOTE | 2019-10-08 10:08 | DS.PDOC ---
Discharge Summary General Date of Admission Oct 06, 2019 at 09:46 Date of Discharge 10/08/2019 Attending Physician: BERTA SMALLS MD Specialist/Consultants Involve: KYE KELLEY MD Discharge Summary PROCEDURES PERFORMED DURING STAY: R ankle ORIF and proximal tibia bone graft ADMITTING DIAGNOSES: 1. R ankle osteoarthritis for ankle surgery 2. 2nd degree heart block, type 1 DISCHARGE DIAGNOSES: 1. R ankle osteoarthritis s/p R ankle ORIF 2. 2nd degree heart block, type 1 3. Hyperlipidemia 4. Ischemic heart disease ([facility] in 2017 negative no stents placed) 5. Multiple sclerosis 6. Asthma controlled 7. Gout 8. Hypertension COMPLICATIONS/CHIEF COMPLAINT: Osteoarthritis Of Right Ankle And Right Foot HISTORY OF PRESENT ILLNESS: 64-year-old M with a pertinent past medical history of ischemic heart disease, hypertension and MS who presented to [facility] for ORIF and proximal tibia bone graft with Dr. Cabrera, whom during the procedure was reported that he experienced 15 minutes of second-degree AV block type I andon review showed that the episode lated relatively 10 seconds and was thereafter admitted for observation under telemetry post op. On evaluation he endorsed a history of hypertension and ischemic heart disease on losartan and metoprolol succinate daily, and sees a waterfront director at [facility] with an upcoming appointment in November 2019 for a stress test and EKG. He reported a prior [facility] 2017 which showed minimal disease and did not have any stents placed and denied any history of abnormal rhythms, congestive heart failure or any other known cardiac disease. HOSPITAL COURSE: He was admitted to medicine for telemetry monitoring that was completely unremarkable with no episodes of AV heart block and remained in NSR. Post surgery, he had a DONTA drained placed that drained serosanguinous fluid and was discontinued on POD2. He is now being discharged home to follow up with his PCP, surgeon and waterfront director. Of note, given the brief episode of Wenkebach, he had a TTE that revealed a normal EF, trace pericardial effusion and grade 1 diastolic dysfunction without WMA. We are recommending close cardiology follow up. DISCHARGE MEDICATIONS: Please see below. ALLERGIES: Please see below. PHYSICAL EXAMINATION ON DISCHARGE: VITAL SIGNS: Please see below. General: NAD, pleasant, obese HEENT: NCAT, EOMI, PERRLA, no injection, anicteric, MMM CARDIOVASCULAR: NSR without mrg noted RESPIRATORY: anterior exam with good air movement and clear to auscultation, no wheezing or rales, breathing comfortably on room air ABDOMINAL: Normoactive bowel, obese, soft, NTND EXTREMITIES: Right lower extremity wrapped in bandage, LLE wnl with no edema, WWP NEUROLOGICAL: CN 2-12 appear grossly intact, moving all extremities with RLE limited by pain PSYCHOLOGICAL: Appropriate, AOx3 LABORATORY DATA: Please see below. IMAGING: TTE 1. Technically limited study due to poor acoustic window. 2. Normal left ventricular size and wall thickness. Low normal global left ventricular systolic function with an estimated LVEF of 50-55% noted in limited views. 3. Normal left atrium. The right atrium and the right ventricle appeared to be normal in limited views. 4. The atrial septum appeared to be normal without evidence of defect or shunt. 5. Normal aortic root. 6. A small pericardial effusion was noted, no evidence of cardiac tamponade. 7. Mildly calcified aortic valve with normal leaflet excursion. The mitral valve and the tricuspid valve appeared to be normal in limited views. The pulmonic valve was not visualized. The proximal pulmonary artery branches also were not visualized. 8. The inferior vena cava was not visualized. DOPPLER: No significant valvular abnormalities detected. Abnormal relaxation pattern was noted across the mitral valve leaflets as well as the mitral valve annulus consistent with features of grade 1 left ventricular diastolic dysfunction. IMPRESSION: 1. Technically limited study due to poor acoustic window. 2. Normal global left ventricular systolic function. There are some features of left ventricular diastolic dysfunction, grade 1. 3. Aortic valve sclerosis without stenosis or aortic regurgitation. 4. A small pericardial effusion was noted, no evidence of cardiac tamponade. PROGNOSIS: Good ACTIVITY: per surgical team's recommendation DIET: 2g sodium DISCHARGE PLAN: surgery follow up, close cardiology and PCP follow up DISPOSITION: Home DISCHARGE INSTRUCTIONS: 1. surgery follow up, close cardiology and PCP follow up ITEMS TO FOLLOWUP ON ON OUTPATIENT: 1. R ankle postop evaluation per surgical team 2. Cardiology follow up for brief 2nd degree HB DISCHARGE CONDITION: Stable TIME SPENT ON DISCHARGE: 32 minutes. Vital Signs/I&Os Vital Signs Date Time Temp Pulse Resp B/P (MAP) Pulse Ox O2 Delivery O2 Flow Rate FiO2 10/08/19 08:17 77 10/08/19 08:15 144/101 10/08/19 07:36 97.2 96 Room Air 10/08/19 04:00 20 10/06/19 20:00 2 I&O- Last 24 Hours up to 6 AM 10/08/19 06:00 Intake Total 1420 ml Output Total 3500 ml Balance -2080 ml Laboratory Data Labs 24H Laboratory Tests 2 10/08/19 05:18: Immature Granulocyte % (Auto) 0.4, Neutrophils (%) (Auto) 74.6H, Lymphocytes (%) (Auto) 11.0L, Monocytes (%) (Auto) 12.8H, Eosinophils (%) (Auto) 0.6, Basophils (%) (Auto) 0.6, Neutrophils # (Auto) 5.9, Lymphocytes # (Auto) 0.9L, Monocytes # (Auto) 1.0H, Eosinophils # (Auto) 0.1, Basophils # (Auto) 0.1, Nucleated Red Blood Cells % (auto) 0.0, Anion Gap 5L, Glomerular Filtration Rate > 60.0, Calcium Level 9.2, Magnesium Level 1.9 CBC/BMP Laboratory Tests 10/08/19 05:18 Microbiology Microbiology 10/06/19 Gram Stain - Final, Complete 10/06/19 Wound Culture - Final, Complete 10/06/19 Anaerobic Culture - Final, Complete Discharge Medications Scheduled Allopurinol (Zyloprim) 300 Mg Tablet, 300 MG PO DAILY, (Reported) Amlodipine Besylate (Amlodipine Besylate) 10 Mg Tablet, 10 MG PO DAILY, (Reported) Aspirin (Aspir 81) 81 Mg Tablet.dr, 81 MG PO DAILY, (Reported) Citalopram Hydrobromide (Citalopram HBr) 20 Mg Tablet, 20 MG PO DAILY, (Reported) Ergocalciferol (Vitamin D2) (Vitamin D2) 50,000 Units Cap, 1 CAP PO QWEEK, (Reported) wednesday Famotidine (Famotidine) 40 Mg Tablet, 40 MG PO BID, (Reported) Gabapentin (Gabapentin) 300 Mg Capsule, 300 MG PO BID, (Reported) Indapamide (Indapamide) 2.5 Mg Tablet, 2.5 MG PO BID, (Reported) Irbesartan (Avapro) 300 Mg Tablet, 300 MG PO DAILY, (Reported) Lactobacillus Combo No.10 (Probiotic) 1 Each Capsule, 1 CAP PO BID, (Reported) Metoprolol Succinate (Metoprolol Succinate) 25 Mg Tab.er.24h, 25 MG PO DAILY, (Reported) Montelukast Sodium (Singulair) 10 Mg Tablet, 10 MG PO DAILY, (Reported) Potassium Chloride (Potassium Chloride) 10 Meq Tab.er.prt, 10 MEQ PO BID, (Reported) Psyllium Husk (Fiber) 0.52 Gm Capsule, 1 CAP PO BID, (Reported) Rivaroxaban (Xarelto) 10 Mg Tablet, 10 MG PO DAILY Rosuvastatin Calcium (Crestor) 20 Mg Tablet, 20 MG PO DAILY, (Reported) Sodium Chloride (Saline Nasal Coulters) 44 Ml Coulters, 1 SPRAY NA PRN, (Reported) Terazosin HCl (Terazosin HCl) 1 Mg Capsule, 1 MG PO QHS, (Reported) Teriflunomide (Aubagio) 14 Mg Tablet, 14 MG PO DAILY, (Reported) Yeast,Dried (S. Cerevisiae) (Fung's Yeast) 680 Mg Tablet, 680 MG PO BID, (Reported) Scheduled PRN Albuterol Sulfate (Ventolin Hfa) 18 Gm Hfa.aer.ad, 2 PUFFS INH QID PRN for DYSPNEA, (Reported) Dicyclomine HCl (Dicyclomine HCl) 20 Mg Tablet, 20 MG PO TID PRN for ABDOMINAL PAIN, (Reported) Fluticasone Propionate (Flonase Allergy Relief) 9.9 Ml Coulters.susp, 50 MCG NA DAILYPRN PRN for NASAL CONGESTION, (Reported) Hydrocodone/Acetaminophen (Hydrocodone-Acetamin 5-325 mg) 1 Each Tablet, 1 TAB PO TID PRN for PAIN, (Reported) Oxycodone HCl (Oxycodone HCl) 5 Mg Tablet, 1-2 TABS PO Q4H PRN for PAIN Allergies Coded Allergies: Penicillins (Verified Allergy, Severe, resp issues, rashes, 10/04/19) all cillins Sulfa (Sulfonamide Antibiotics) (Verified Allergy, Severe, resp issues, rash, 10/04/19) cefaclor (Verified Allergy, Severe, resp issues, rash, 10/04/19) BERTA SMALLS MD Oct 08, 2019 10:08
== END 2019-10-08 11:41 | disposition home or self-care (01) | DRG 313 ==
LOC: M OR 09:46 → M PCU 20:18
PROVIDERS: ADMIT Orthopaedic Surgery; ATTEND Internal Medicine
PROC: 0QSG04Z Reposition Right Tibia with Internal Fixation Device, Open Approach (ICD-10-PCS; principal; 2019-10-06 12:15)
PROC: 0SGF07Z Fusion of Right Ankle Joint with Autologous Tissue Substitute, Open Approach (ICD-10-PCS; 2019-10-06 12:15)
DX: M84.661A Pathological fracture in other disease, right tibia, initial encounter for fracture (principal); M19.071 Primary osteoarthritis, right ankle and foot; I10 Essential (primary) hypertension; I25.10 Atherosclerotic heart disease of native coronary artery without angina pectoris; J45.909 Unspecified asthma, uncomplicated; K21.9 Gastro-esophageal reflux disease without esophagitis; G35 Multiple sclerosis; Z86.718 Personal history of other venous thrombosis and embolism; I44.1 Atrioventricular block, second degree; E78.5 Hyperlipidemia, unspecified; M10.9 Gout, unspecified; F32.9 Major depressive disorder, single episode, unspecified; I25.9 Chronic ischemic heart disease, unspecified; Z87.442 Personal history of urinary calculi; Z87.891 Personal history of nicotine dependence; Z79.82 Long term (current) use of aspirin; Z79.899 Other long term (current) drug therapy; Z88.0 Allergy status to penicillin; Z88.1 Allergy status to other antibiotic agents; Z88.2 Allergy status to sulfonamides

== ENCOUNTER 2020-04-15 15:10 | Outpatient (CLI) | payer BC ==
[~2020-04-15] VITALS: Ht 177.8 cm; Wt 122.0 kg
[~2020-04-15 15:10] MED LIST changes: -AMLO10TA5 PO; +AMLO1TAB25 PO; +ASPI81TA86 PO; +DICY20TA11 PO; +FLON1SPR; -LR 1,000 ML IV ONE; +OXYC-517 PO; -VANCOMYCIN HCL 1,000 MG, VIAL MATE ADAPTER 1 EACH in D5W 250 ML IV ONE; +XARE10TA PO
[2020-04-15 15:15] VITALS: BP 131/87
[2020-04-15] MEDS ORDERED: BEZLOTOXUMAB in NS 100 ML OVER 1 HR IV ONE (16:00)
[2020-04-15 16:45] VITALS: BP 138/87
[2020-04-15 17:26] VITALS: BP 148/84
== END 2020-04-15 17:25 | disposition home or self-care (01) ==
LOC: M INFU 15:10
PROVIDERS: ATTEND Internal Medicine Infectious Disease
DX: A04.71 Enterocolitis due to Clostridium difficile, recurrent (principal)
CPT/HCPCS: 96365; J0565

== ENCOUNTER → 2022-01-13 | Outpatient (REF) | payer BC ==
[~2022-01-13] MED LIST changes: -AUBA14TA PO; -DICY20TA11 PO; +DICY20TA20 PO; +ERGO500029 PO; +GABA-282 PO; -GABA-843 PO; +POTA-149 PO; -POTA10TA16 PO; +TERI14TA PO; -VITA50005 PO
== END ==
LOC: M LAB REF 16:00
PROVIDERS: ATTEND Surgery
DX: C44.529 Squamous cell carcinoma of skin of other part of trunk (principal)

== ENCOUNTER → 2022-04-07 | Outpatient (REF) | payer BC ==
[2022-04-07 13:47] LABS: BASO # 0.1 10^3/uL (0.0-0.2); BASO % 1.1 % (0.0-1.0); EOS # 0.2 10^3/uL (0.0-0.5); EOS % 3.9 % (0.0-3.0); HEMATOCRIT 40.8 % (42.0-52.0); LYMPH # 0.8 10^3/uL (1.5-5.0); LYMPH % 17.4 % (24.0-44.0); MEAN CORPUSCULAR HEMOGLOBIN 30.6 pg (27.0-33.0); MEAN CORPUSCULAR HGB CONC 31.9 g/dl (32.0-36.5); MONO # 0.5 10^3/uL (0.0-0.8); MONO % 10.5 % (2.0-8.0); NEUTROPHILS # 3.1 10^3/uL (1.5-8.5); NEUTROPHILS % 66.9 % (36.0-66.0); PLATELET COUNT, AUTOMATED 131 10^3/uL (150-450); RED BLOOD COUNT 4.25 10^6/uL (4.30-6.10); WHITE BLOOD COUNT 4.7 10^3/uL (4.0-10.0)
== END ==
LOC: M LAB REF 12:56
PROVIDERS: ATTEND Internal Medicine Pulmonary Disease
DX: J45.20 Mild intermittent asthma, uncomplicated (principal)

== ENCOUNTER → 2022-10-14 | Outpatient (REF) | payer BC ==
[~2022-10-14] MED LIST changes: +MONT-5 PO; -SING10TA32 PO
== END ==
LOC: M LAB REF 15:14
PROVIDERS: ATTEND Internal Medicine Pulmonary Disease
DX: R05.9 Cough, unspecified (principal)